=== PATIENT | male | born 1955 | race Caucasian/White ===

== ENCOUNTER 2019-04-29 12:09 | Outpatient (CLI) | payer OTHER, SELFPAY ==
--- NOTE | ~2019-04-29 | US_ITS ---
EXAMINATION: US scrotum doppler DATE: 04/29/2019 13:01 INDICATION: Hydrocele, unspecified. Scrotal swelling and pain. TECHNIQUE: Grayscale and Doppler ultrasound images of the testes were obtained. COMPARISON: None. FINDINGS: The right testis measures 4.5 x 4.0 x 2.6 cm. The left testis measures 5.3 x 3.2 x 3.3 cm. There is an 11 mm cyst in left testis. There is normal vascular flow to both testes. The right epidid ymis demonstrates a 2.1 cm multiloculated cyst, likely benign. The left epididymis is not well-visual ized. There is a large left hydrocele. IMPRESSION: 1. Large left hydrocele. Reviewed, dictated and finalized at location A. [employer] IMPRESSION: 1. Large left hydrocele.
== END 2019-04-29 12:10 | disposition home or self-care (01) ==
LOC: ANHIMG 12:16
PROVIDERS: PCP Family Medicine; Visit Provider Surgery
DX: N43.3 Hydrocele, unspecified (principal)
CPT/HCPCS: 76870; 93976

== ENCOUNTER 2019-06-03 09:21 | Outpatient (CLI) | payer OTHER, SELFPAY ==
--- NOTE | 2019-06-03 09:25 | ECG_ITS ---
Measurements Intervals [place] Rate: 62 P: 52 WI: 173 QRS: -25 QRSD: 102 T: 97 QT: 411 QTc: 419 Interpretive Statements SINUS RHYTHM VOLTAGE CRITERIA FOR LVH INFERIOR INFARCT, AGE INDETERMINATE BORDERLINE ST-T WAVE ABNORMALITY- LATERAL LEADS ABNORMAL ECG Electronically Signed On 06-03-2019 9:56:56 CDT by Fernando Beltran D.O.
== END 2019-06-03 09:22 | disposition home or self-care (01) ==
LOC: ANHSURGERY 09:25
PROVIDERS: PCP Family Medicine; Visit Provider Urology
DX: Z01.810 Encounter for preprocedural cardiovascular examination (principal); I10 Essential (primary) hypertension; R94.31 Abnormal electrocardiogram [ECG] [EKG]
CPT/HCPCS: 93005

== ENCOUNTER 2019-06-09 01:26 | Day surgery (SDC) | payer OTHER, SELFPAY ==
[2019-06-01 10:53] VITALS: BMI 35.9
[2019-06-09] VITALS (8 sets, daily range): BP systolic 113–141; BP diastolic 70–89; PULSE 63–78; RESP 10–20; TEMP 36.1–36.9; O2SAT 96–100
--- NOTE | 2019-06-09 06:48 | WPDHPUPDATE1 ---
History and Physical Update Update Date/Time: 06/09/19 06:48 History and Physical has been reviewed, including an updated exam of the patient. There are NO changes in the patient's condition. Risks, benefits, and alternatives have been discussed and questions answered. Patient agrees to proceed with procedure.
[2019-06-09] MEDS: LACTATED RINGERS 1,000 ML 30 ML IV CONT (10:50)
--- NOTE | 2019-06-09 12:09 | WPDANESEPPF ---
Anes - Initial Pre Proc Eval Procedure: Operation Date: 06/09/19 13:00 Proposed Procedures p Left Hydrocelectomy - Addison Real MD Date/Time: 06/09/19 12:09 Surgeon: Addison Real MD Pre Op Diagnosis: Hydrocele,M43.3 Patient Data Age: 63 Gender: M Height: 5 ft 10 in Weight: 110.5 kg Allergies Allergy/AdvReac Type Severity Reaction Status Date / Time No Known Allergies Allergy Verified 06/09/19 10:00 Home Medications Medication Instructions Recorded Confirmed Type lisinopril 20 mg tablet 20 mg PO DAILY #90 tablet 03/18/19 06/01/19 Rx metoprolol succinate 25 mg 25 mg PO DAILY #90 tablet 03/18/19 06/01/19 Rx tablet,extended release 24 hr atorvastatin 10 mg tablet 10 mg PO DAILY #90 tablet 03/30/19 06/01/19 Rx aspirin 81 mg PO DAILY 06/01/19 06/01/19 History Patient hx anesthesia problems: none Family hx anesthesia problems: none [facility] Past Medical History Medical History (Updated 06/03/19 @ 11:43 by Tsering Guo PA-C) Heart attack (~2009) Family History Family History Mother Diabetes mellitus, Onset Age: 71 Hypertension, Onset Age: 71 Family history of elevated blood lipids, Onset Age: 71 Family history of cardiovascular disease, Onset Age: 71 Cerebrovascular accident, Onset Age: 71 Father Family history of glaucoma, Onset Age: 68 Hypertension, Onset Age: 68 Family history of elevated blood lipids, Onset Age: 68 Family history of cardiovascular disease, Onset Age: 68 Sibling Malignant neoplasm of prostate Family history of lymphoma Family history of malignant neoplasm of breast in first degree relative Social History Social History Smoking status: Current every day smoker Alcohol intake: current 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 Questions were solicited and answers provided to the satisfaction of the patient/family/POA.
[2019-06-09] MEDS: ceFAZolin 2 GM/D5W 50 ML 2 GM/50 ML BAG IVPB (12:16)
[2019-06-09] MEDS: LIDO 1%/EPINEPHRINE 1:100,000 20 ML VIAL INFILTRATE (12:49)
[2019-06-09] MEDS: KETOROLAC 30 MG/ML VIAL (*BKC) 15 MG IV PUSH (12:56)
--- NOTE | 2019-06-09 13:05 | PM.PROC ---
Procedure Note - Detailed Date of procedure: 06/09/19 Pre-op diagnosis: Hydrocele,M43.3 Post-op diagnosis: same Procedure performed: Left hydrocelectomy Description of procedure: The patient was brought to the operative suite where he was prepped and draped in routine sterile fashion while in a supine position after the uneventful induction of a general LMA anesthetic. An incision was made in the median raphe of the scrotum and dissection was carried into the left tunica vaginalis. Clear, straw-colored fluid was drained. The testicle was examined and found to be both visibly and palpably normal. The tunica was everted in a bottle-neck fashion using a running 4-0 chromic. The testicle was restore returned to an orthotopic positioned. The dartos muscle was closed with a running 4-0 chromic and the skin was likewise closed with a running 4-0 chromic. Estimated blood loss throughout this procedure was []cc . Patient tolerated the procedure well and was taken to the recovery room in good condition. Anesthesia: GLMA Surgeon: Addison Real MD Estimated blood loss (mL): 0 Drains: No Packing: No Pathology: none sent Complications: No immediate complications Condition: stable Disposition: PACU
== END 2019-06-09 14:59 | disposition home or self-care (01) ==
PROVIDERS: PCP Family Medicine; Visit Provider Urology
PROC: (CPT 55040; principal; 2019-06-09 13:00)
DX: N43.3 Hydrocele, unspecified (principal); I10 Essential (primary) hypertension; I25.2 Old myocardial infarction; E78.00 Pure hypercholesterolemia, unspecified; Z79.82 Long term (current) use of aspirin; E66.9 Obesity, unspecified; Z68.35 Body mass index [BMI] 35.0-35.9, adult
CPT/HCPCS: 55060; J0690; J1100; J1885; J2250; J2405; J2704; J3010; J7120

== ENCOUNTER 2020-10-26 10:22 | Emergency (ER) | payer OTHER, SELFPAY ==
--- NOTE | ~2020-10-26 | CT_ITS ---
EXAMINATION: CT abdomen pelvis wo con DATE: 10/26/2020 11:30 INDICATION: Right flank pain TECHNIQUE: Computed tomography (CT) of the abdomen and pelvis was performed without intravenous contr ast. The dose-length product (DLP) was 1118.80 mGy-cm. Automated exposure control and iterative recon struction technique were employed. COMPARISON: None FINDINGS: There is emphysema and mild atelectasis of the visualized lung bases. The heart size is nor mal. Calcified coronary artery atherosclerosis is noted. The liver, spleen, pancreas, gallbladder, an d adrenal glands are normal. The kidneys are unremarkable. No stones are identified in the kidneys, u reters, or bladder. There is no hydronephrosis or hydroureter. There is a 3.1 cm fusiform aneurysm of the infrarenal abdominal aorta. No pathologically enlarged abdominal or pelvic lymph nodes are ident ified. There is no free intraperitoneal gas or evidence of bowel obstruction. The appendix is normal. There is moderate lumbar spondylosis. A fat-containing umbilical hernia is noted. IMPRESSION: 1. No CT correlate for the patient's symptoms. 2. 3.1 cm fusiform infrarenal abdominal aortic aneurysm. Reviewed, dictated and finalized at location A.
[2020-10-26 10:27] VITALS: BP 143/94; PULSE 65; RESP 18; TEMP 36.8; O2SAT 99
[2020-10-26 11:06] LABS: Basophils Percent Auto 0.4 % (0.2-1.2); Eosinophils Absolute Auto 0.1 K/mm3 (0-0.3); Eosinophils Percent Auto 0.8 % (0-4.4); Hematocrit 51.6 % (42.0-52.0); Immature Granulocyte Absolute 0.05 K/mm3 (0.00-0.031); Immature Granulocyte Percent A 0.7 % (0-0.5); Lymphocytes Percent Auto 17.9 % (18.3-44.2); Mean Corpuscular HGB Conc 32.9 g/dl (32-36); Mean Corpuscular Hemoglobin 30.2 pg (26-34); Mean Corpuscular Volume 91.8 fl (80-100); Mean Platelet Volume 9.5 fl (7.4-10.4); Monocytes Absolute Auto 0.8 K/mm3 (0.1-0.6); Monocytes Percent Auto 10.3 % (2.6-8.5); Neutrophils Absolute Auto 5.1 K/mm3 (1.3-6.7); Neutrophils Percent Auto 69.9 % (45.5-73.1); Platelet Count Result 233 k/mm3 (150-375); Red Blood Count 5.62 M/mm3 (4.6-6.20); Red Cell Distribution Width 13.9 % (11.5-14.5); White Blood Count 7.3 K/mm3 (4.5-10.0)
[2020-10-26 11:16] LABS: Anion Gap 8 mmol/L (8-16); Blood Urea Nitrogen 18 mg/dL (9-20); Calcium 9.4 mg/dL (8.4-10.2); Carbon Dioxide 23 mmol/L (22-30); Chloride 107 mmol/L (98-107); Estimated CRCL calculation 91 ml/min; Estimated Glomerular Filt Rate > 60; Glucose 122 mg/dL (65-110); Potassium 4.1 mmol/L (3.4-5.0); Sodium 138 mmol/L (137-145)
--- NOTE | 2020-10-26 11:36 | ED.GENADULT ---
HPI - General Adult General Chief complaint: Urogenital-Male Stated complaint: right flank pain Time Seen by Provider: 10/26/20 10:29 Source: RN notes reviewed History of Present Illness HPI narrative: Patient presents emergency department from home for right-sided flank pain. Patient states the pain began 3 days ago. Pain is located in the right flank and radiates around to the right upper abdomen. Described as sharp and stabbing. States is associated with nausea. Denies any fevers or chills, chest pain, shortness of breath, vomiting diarrhea or any other symptoms. States he did take Tylenol at home for the pain with minimal relief Related Data Home Medications Medication Instructions Recorded Confirmed aspirin 81 mg PO DAILY 06/01/19 05/29/20 atorvastatin 40 mg tablet 40 mg PO DAILY 07/22/19 05/29/20 Allergies Allergy/AdvReac Type Severity Reaction Status Date / Time No Known Allergies Allergy Verified 05/29/20 11:25 Review of Systems Review of Systems: Gen.: Denies fevers or chills ENT: Denies congestion Respiratory: Denies shortness of breath or cough CV: Denies chest pain or palpitations GI: See HPI denies burning, urgency, frequency or hematuria Musculoskeletal: Denies back pain or muscle pain Neuro: Denies numbness, tingling, weakness or focal weakness Skin: Denies rash Except as documented, all other systems reviewed and negative [facility] Past Medical History Medical History Heart attack (~2009) Hydrocele, left repaired Hydrocele, right repaired Surgical History Surgical History H/O rotator cuff surgery (~03/2008) History of hydrocelectomy (~03/2014) History of hydrocelectomy (~06/2019) Family History Family History Mother Diabetes mellitus, Onset Age: 71 Hypertension, Onset Age: 71 Family history of elevated blood lipids, Onset Age: 71 Family history of cardiovascular disease, Onset Age: 71 Cerebrovascular accident, Onset Age: 71 Father Family history of glaucoma, Onset Age: 68 Hypertension, Onset Age: 68 Family history of elevated blood lipids, Onset Age: 68 Family history of cardiovascular disease, Onset Age: 68 Sibling Malignant neoplasm of prostate Family history of lymphoma Family history of malignant neoplasm of breast in first degree relative Social History Social History Alcohol intake: current 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 No clubbing, cyanosis or edema. NEURO: Awake and alert. Following commands, speech normal, no focal deficits SKIN:: Warm, dry. Normal Color PSYCHIATRIC: Normal affect/mood Course Course Emergency Course: Discussed with patient results of workup and diagnosis. Discussed need for follow-up with primary care, proper use of medication, and reasons to return to the emergency department. Patient understands and agrees to current treatment plan Vital Signs Vital signs: Vital Signs Temperature 98.2 F 10/26/20 10:27 Pulse Rate 65 10/26/20 10:27 Respiratory Rate 18 10/26/20 10:27 Blood Pressure 143/94 H 10/26/20 10:27 Pulse Oximetry 99 10/26/20 10:27 Temperature 98.2 F 10/26/20 10:27 Pulse Rate 65
[2020-10-26] MEDS: KETOROLAC 30 MG/ML VIAL (*BKC) IV PUSH (11:38)
[2020-10-26] MEDS: SODIUM CHLORIDE 0.9% IV 1,000 ML 999 ML IV CONT (11:39)
[2020-10-26] MEDS: ONDANSETRON INJ 4 MG/2 ML VIAL IV PUSH (11:39)
--- NOTE | 2020-10-26 11:49 | ECG_ITS ---
Measurements Intervals [place] Rate: 61 P: 21 NM: 179 QRS: -26 QRSD: 109 T: 62 QT: 418 QTc: 422 Interpretive Statements SINUS RHYTHM INCOMPLETE LEFT BUNDLE BRANCH BLOCK INFERIOR INFARCT, AGE INDETERMINATE BORDERLINE ST-T WAVE ABNORMALITY- HIGH LATERAL LEADS ABNORMAL ECG Electronically Signed On 10-26-2020 12:02:56 CDT by Fernando Beltran D.O.
[2020-10-26 12:02] LABS: Alanine Aminotransferase 32 U/L (4-50); Albumin Level 4.3 g/dL (3.5-5.1); Alkaline Phosphatase 96 U/L (38-126); Aspartate Amino Transferase 32 U/L (17-59); Bilirubin,Total 0.7 mg/dL (0.2-1.3); Lipase 74 U/L (23-300)
[2020-10-26 12:05] LABS: Add Urine Microscopic? NO; Appearance Urine Clear (Clear); Bilirubin Urine Negative (Negative); Blood Urine Negative (Negative); Color Urine Yellow (Yellow); Glucose Urine UA Negative (Negative); Ketones Urine Negative (Negative); Leukocyte Esterase Ur Negative LEU/UL (Negative); Nitrate Urine Negative (Negative); Protein Urine Negative (Negative); Urobilinogen Urine Negative mg/dL (<2.0)
[2020-10-26 12:37] LABS: D Dimer 0.46 ug/mL (<0.48)
[2020-10-26 13:12] VITALS: BP 140/88; PULSE 66; RESP 18; O2SAT 99
== END 2020-10-26 13:10 | disposition home or self-care (01) ==
PROVIDERS: Emergency Provider Emergency Medicine; PCP Family Medicine
DX: R10.9 Unspecified abdominal pain (principal); I25.2 Old myocardial infarction; Z79.82 Long term (current) use of aspirin; I71.4 Abdominal aortic aneurysm, without rupture; I44.7 Left bundle-branch block, unspecified; R94.31 Abnormal electrocardiogram [ECG] [EKG]
CPT/HCPCS: 36415; 74176; 80048; 80076; 81003; 83690; 85025; 85380; 93005; 96361; 96374; 96375; 99284; J1885; J2405; J7030

== ENCOUNTER 2020-10-28 11:04 | Emergency (ER) | payer OTHER, SELFPAY ==
[2020-10-28 11:17] VITALS: BP 195/92; PULSE 69; RESP 18; TEMP 36.4; O2SAT 96
--- NOTE | 2020-10-28 12:20 | ED.SKABFB ---
HPI - Skin/Abscess/Foreign Bdy General Chief complaint: Skin/Abscess/Foreign Body Stated complaint: rash flank, pain, Time Seen by Provider: 10/28/20 11:43 Source: patient Mode of arrival: ambulatory Limitations: no limitations History of Present Illness HPI narrative: This is a 64-year-old male that presents to the emergency department for right low back pain. Reports he was seen here for this on Thursday morning. He was discharged without a cause found in his pain. Later he started to develop a rash. The rash is painful and a little bit itchy. Denies fever. Related Data Home Medications Medication Instructions Recorded Confirmed aspirin 81 mg PO DAILY 06/01/19 05/29/20 atorvastatin 40 mg tablet 40 mg PO DAILY 07/22/19 05/29/20 Allergies Allergy/AdvReac Type Severity Reaction Status Date / Time No Known Allergies Allergy Verified 10/28/20 11:58 Review of Systems Review of Systems: CONSTITUTIONAL: Denies fever SKIN: Reports rash and itching. All systems reviewed & are unremarkable except as noted in HPI and below PMFSH Past Medical History Medical History Heart attack (~2009) Hydrocele, left repaired Hydrocele, right repaired Surgical History Surgical History H/O rotator cuff surgery (~03/2008) History of hydrocelectomy (~03/2014) History of hydrocelectomy (~06/2019) Family History Family History Mother Diabetes mellitus, Onset Age: 71 Hypertension, Onset Age: 71 Family history of elevated blood lipids, Onset Age: 71 Family history of cardiovascular disease, Onset Age: 71 Cerebrovascular accident, Onset Age: 71 Father Family history of glaucoma, Onset Age: 68 Hypertension, Onset Age: 68 Family history of elevated blood lipids, Onset Age: 68 Family history of cardiovascular disease, Onset Age: 68 Sibling Malignant neoplasm of prostate Family history of lymphoma Family history of malignant neoplasm of breast in first degree relative Social History Social History Alcohol intake: current 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 HEAD: Normocephalic, atraumatic. EYES: EOMI. EXTREMITIES: Normal range of motion. No edema. SKIN: Warm, dry. Vesicular rash present on an erythematous base in a dermatomal pattern to the right lower back radiating around to the abdomen NEURO: No focal deficits. Alert and oriented x3. PSYCH: Normal mood and affect Course Vital Signs Vital signs: Vital Signs Temperature 97.5 F L 10/28/20 11:17 Pulse Rate 69 10/28/20 11:17 Respiratory Rate 18 10/28/20 11:17 Blood Pressure 195/92 H 10/28/20 11:17 Pulse Oximetry 96 10/28/20 11:17 Temperature 97.5 F L 10/28/20 11:17 Pulse Rate 69 10/28/20 11:17 Respiratory Rate 18 10/28/20 11:17 Blood Pressure 195/92 H 10/28/20 11:17 Pulse Oximetry 96 10/28/20 11:17 MDM - Skin/Abscess/Foreign Bdy MDM Narrative Medical decision making narrative: Patient presents emergency department for rash consistent with herpes zoster. Patient will be started on antiviral. He was instructed on care of shingles. He is to follow-up with his primary care doctor. He was given warnings to return to the ER Critical Care Time Critical Care Time Critical Care Time: No Discharge Plan Discharge Clinical Impression: Herpes zoster Qualifiers: Herpes zoster complications: without complications Qualified Code(s): B02.9 - Zoster without complications Patient Disposition: Home, Self-Care Condition: Stable Instructions: Shingles (ED) Additional Instructions: Return to the emergency department if you experience fever, redness and
[2020-10-28] MEDS: valACYclovir HCL 500 MG TABLET 1000 MG PO (12:33)
== END 2020-10-28 12:41 | disposition home or self-care (01) ==
PROVIDERS: Emergency Provider Emergency Medicine; PCP Family Medicine
DX: B02.9 Zoster without complications (principal); I25.2 Old myocardial infarction
CPT/HCPCS: 99283; A9270